=== PATIENT | female | born 1985 | race Caucasian/White ===

== ENCOUNTER 2022-09-04 12:08 | Day surgery (SDC) | payer SELFPAY ==
--- NOTE | 2022-09-04 12:16 | US_ITS ---
[address] [address] Patient Name: KERRI GRACE MRN: [id number] date: 1985 Sex: F Assigned Patient Location: US Current Patient Location: US Accession/Order Number: [id number] Exam Date: 09/04/2022 12:50 Report Date: 09/04/2022 14:13 At the request of: DIOGO RICHARDS Procedure: US biopsy thyroid EXAMINATION: US biopsy thyroid HISTORY: Left thyroid nodule COMPARISON: Ultrasound thyroid 07/30/2022 TECHNIQUE: After obtaining informed consent, ultrasound-guided fine needle aspiration was performed in the usual sterile manner. FINDINGS: IMAGING: Ultrasound. BIOPSY NEEDLE: 25-gauge; 3 separate passes LOCATION: Left thyroid lobe 2.5 x 2.2 x 1.0 cm isoechoic mass with hypoechoic peripheral rim. SPECIMEN TYPE: Cellular tissue. LOCAL ANESTHETIC: Buffered Xylocaine. COMPLICATIONS: None. LABORATORY: Prepared slide smears and washings for cell block evaluation. OTHER: Negative. PATHOLOGY: Pending. An addendum will be added when results are available. IMPRESSION: 1. Uneventful ultrasound guided fine needle aspiration (FNA). 2. Pathology results are pending. Electronically authenticated by: PEG SEAMAN Date: 09/04/2022 14:13
[2022-09-04] MEDS: LIDOCAINE HCL 10 ML, SODIUM BICARBONATE 1 MEQ INJ (13:42)
[2022-09-04 14:44] VITALS: BP 157/97; PULSE 85; O2SAT 99
== END 2022-09-04 13:30 | disposition home or self-care (01) ==
PROVIDERS: Radiology Diagnostic Radiology; PCP Internal Medicine Gastroenterology; Visit Provider Otolaryngology
DX: E04.1 Nontoxic single thyroid nodule (principal)
CPT/HCPCS: 10005; 88300; 99999

== ENCOUNTER 2022-09-24 09:38 | Day surgery (SDC) | payer BC, SELFPAY ==
--- NOTE | 2022-09-24 09:46 | US_ITS ---
The [address] [address] Patient Name: KERRI GRACE MRN: [id number] date: 1985 Sex: F Assigned Patient Location: US Current Patient Location: US Accession/Order Number: [id number] Exam Date: 09/24/2022 10:00 Report Date: 09/24/2022 11:31 At the request of: DIOGO RICHARDS Procedure: US biopsy thyroid EXAMINATION: US biopsy thyroid HISTORY: LT THYROID NODULE COMPARISON: No relevant comparison available. TECHNIQUE: After obtaining informed consent, an ultrasound-guided biopsy was performed in the usual sterile manner. FINDINGS: IMAGING: Ultrasound BIOPSY NEEDLE: 25-gauge, 2 inch SPECIMEN TYPE, #, LOCATION: 2 fine-needle aspirates, 2.2 cm isoechoic echogenic left thyroid lobe mass MEDICATION: 4 cc 1% buffered lidocaine COMPLICATIONS: None. LABORATORY: Molecular testing ordered OTHER: Negative. IMPRESSION: Uneventful ultrasound guided biopsy. The patient was instructed to obtain follow up care and biopsy results from the referring physician. Electronically authenticated by: RICHARD STEEL Date: 09/24/2022 11:31
[2022-09-24 09:55] VITALS: BP 138/97; PULSE 89; O2SAT 93
[2022-09-24] MEDS: LIDOCAINE HCL 10 ML, SODIUM BICARBONATE 1 MEQ INJ (10:40)
[2022-09-24 13:20] VITALS: BMI 50.6
--- NOTE | 2022-09-24 13:29 | PC.NURSE ---
Bandaid applied and ice pack to biopsy site
== END 2022-09-24 11:00 | disposition home or self-care (01) ==
LOC: US 09:40
PROVIDERS: Radiology Diagnostic Radiology; PCP Internal Medicine Gastroenterology; Visit Provider Otolaryngology
DX: E04.1 Nontoxic single thyroid nodule (principal)
CPT/HCPCS: 10005; 88300